=== PATIENT | female | born 1970 | race Caucasian/White ===

== ENCOUNTER 2019-01-28 09:25 | Emergency (ER) | payer BC ==
[~2019-01-28] VITALS: Ht 170.2 cm; Wt 78.5 kg
[2019-01-28 09:45] VITALS: Ht 170.2 cm; Wt 78.5 kg
[2019-01-28 11:35] VITALS: BP 150/84
== END 2019-01-28 11:37 | disposition home or self-care (01) ==
LOC: ED 09:25
DX: S61.215A Laceration without foreign body of left ring finger without damage to nail, initial encounter (principal); Z86.2 Personal history of diseases of the blood and blood-forming organs and certain disorders involving the immune mechanism; W26.0XXA Contact with knife, initial encounter; Y93.89 Activity, other specified; Y92.89 Other specified places as the place of occurrence of the external cause; Y99.8 Other external cause status
CPT/HCPCS: 90715; J2001

== ENCOUNTER 2019-01-30 10:10 | Emergency (ER) | payer BC ==
[~2019-01-30] VITALS: Ht 170.2 cm; Wt 78.9 kg
[2019-01-30 10:19] VITALS: Ht 170.2 cm; Wt 78.9 kg
[2019-01-30 11:18] VITALS: BP 164/80
== END 2019-01-30 11:18 | disposition home or self-care (01) ==
LOC: ED 10:10
DX: S61.215D Laceration without foreign body of left ring finger without damage to nail, subsequent encounter (principal); X58.XXXD Exposure to other specified factors, subsequent encounter